=== PATIENT | male | born 1930 | race Caucasian/White ===

== ENCOUNTER 2017-08-19 21:08 | Inpatient (IN) | payer MEDICARE ==
[~2017-08-19] VITALS: Ht 172.7 cm; Wt 85.0 kg
[2017-08-19 23:11] VITALS: BP 128/69
[2017-08-20] MEDS ORDERED: VANCOMYCIN 1,000 MG in NS 100ML 100 ML IV SCH (00:30)
[2017-08-20] MEDS ORDERED: VANCOMYCIN HCL 1 GM ONE (00:55)
[2017-08-20] MEDS ORDERED: NS 250ML 250 ML IV ONE (00:56)
[2017-08-20] MEDS: LOVENOX SQ SCH (01:02)
--- NOTE | 2017-08-20 01:50 | HPH ---
ADMIT DATE: 08/19/2017 The patient is being admitted as an inpatient. PRIMARY CARE PHYSICIAN: Emergency Services Director, [facility], [place] ADMITTING DIAGNOSES: 1. Right lower lobe pneumonia. 2. Type 2 diabetes mellitus. 3. Hypertension. CHIEF COMPLAINT: Worsened breathing and coughing. HISTORY OF PRESENT ILLNESS: The patient is a very pleasant 86-year-old [facility] resident who started to have increasing URI symptoms for the past 4 to 5 days. He reports sick contacts around him at the [facility] and he started to have a productive sputum that progressed with increasing shortness of breath and a fever and him feeling ill. Today, he was running a fever and having chills and having lots of productive sputum and shortness of breath. So he was brought to the ER for further evaluation. He denied any night sweats, any syncope, no lethargy. His appetite has gone down, no vomiting. He has been coughing a lot of sputum up, green sputum. No hematemesis, no hemoptysis, no melena, no hematochezia, no abdominal pains, no constipation, no significant diarrhea lately, no dysuria. He reported having a remote history of CVA that affected his left side, and he did good with therapy, however in the past 4 to 5 days, he has been feeling weaker moving around. PAST MEDICAL HISTORY: Significant for hypertension, type 2 diabetes mellitus, and a remote history of a right CVA with left hemiparesis. ALLERGIES: PENICILLIN AND HYDROCODONE. SOCIAL HISTORY: He has a remote history of smoking. No illicit drugs and no alcohol reported. FAMILY HISTORY: The family history was asked and is noncontributory for this admission. PAST SURGICAL HISTORY: Hernia surgery, cholecystectomy, and appendectomy. MEDICATIONS: The medications he is on include Ceftin that was started recently, Flomax, aspirin, Lasix, lisinopril, potassium chloride, artificial tears solution, Biotene solution, guaifenesin, and metformin. PHYSICAL EXAMINATION: VITAL SIGNS: Vital signs on admission: Temperature 97.4 degrees Fahrenheit, pulse rate 100, respirations 18, blood pressure 128/69 mmHg, and O2 saturation 93%. His temperature was 100.6 in the [place] ER. My physical exam is as follows: GENERAL: He was in no acute distress to me, awake and alert, a very pleasant gentleman. Oropharynx was clear. No maxillary sinus tenderness. NECK: The neck was supple, no JVD noted. HEART: S1 and S2 audible. Heart rate on my exam was about 90 beats a minute. PMI was diffuse. LUNGS: He had crackles to the right base noted. ABDOMEN: Good bowel sounds, soft abdomen, no rebound, no guarding, no masses. EXTREMITIES: He had some mild edema to his legs. 2+ distal pulses noted on his right side and 1+ on his left side. LABORATORY DATA: So in the [place] ER, labs were drawn: Glucose 159, BUN 13, creatinine 0.7, sodium 128, potassium 3.5, chloride 93, albumin 3.5, total bilirubin 1.5, alkaline phosphatase 71, CK 66, troponin 0.028, BNP 682, lactic acid level 3.1, D-dimer is 43, white count 9100, hemoglobin 13.8, and platelet count 197. IMAGING STUDIES: A chest x-ray showed a right lower lobe consolidative pneumonia. ASSESSMENT: We have this elderly gentleman from the [facility] with pneumonia. I do think it is a healthcare-related pneumonia at this point. IV vancomycin and Primaxin will be started for him with breathing treatments. I will do a sputum Gram stain and culture. Blood cultures were obtained in [place]. I will get an echocardiogram on him to evaluate his LV function and give him cautious IV fluids. He was given actually a fluid bolus in [place] and was transferred over here, but the paramedics noted that he sounded very wet and so they stopped the IV fluids. So at this point, he may have an underlying heart component that would preclude him from getting his sepsis fluid intake at 30 mL per kilos and this may be too much for him, but I will follow along and start prompt antibiotics and O2 and breathing treatments and we will see how he will do. Dariana Pichardo MD DR: PHYLLIS/lissett JOB# [id number]
[2017-08-20 01:52] LABS: BILIRUBIN,URINE NEGATIVE (NEGATIVE); UROBILINOGEN,URINE NORMAL (NEGATIVE)
[2017-08-20 02:00] LABS: APPEARANCE,URINE CLEAR (CLEAR); UA COLOR YELLOW (YELLOW)
[2017-08-20 04:17] VITALS: BP 142/81
[2017-08-20] MEDS ORDERED: NS 100ML 100 ML IV ONE (05:31)
[2017-08-20] MEDS ORDERED: MEROPENEM 1,000 MG in NS 100ML 100 ML IV SCH (06:00)
--- NOTE | 2017-08-20 07:00 | NUR ---
REPORT RECEIVED FROM GIS PROFESSOR
[2017-08-20 07:25] VITALS: BP 119/85
--- NOTE | 2017-08-20 08:35 | NUR ---
DISCHARGE PLAN CM VISITED WITH PATIENT CONCERNING HIS DISCHARGE PLAN AND NEED. PATIENT STATED HE IS @ [facility] AND HAS BEEN RECEIVING PHYSICAL THERAPY SINCE HE FRACTURED HIS HIP. CM NOTIFIED [facility] AND SPOKE TO LORETTA IN BUSINESS OFFICE WHOM STATED PATIENT HAS BEEN WITH THEM SINCE 07-01-17 UNDER SNF SERVICES S/P HIP FRACTURE. PATIENT HAS ALL DME IN PLACE @ IN AND HAS BEEN PROGRESSING WELL, UNIT HE CAME DOWN SICK; THUS HOSPITAL ADMISSION. PATIENT HAS NOT BEEN SENT OUT OF IN SINCE ADMISSION INTO FACILITY PER LORETTA. CURRENT GOAL FOR PATIENT IS TO DISCHARGE BACK TO IN AND FINISH HIS SNF SERVICES THEN DISCHARGE BACK HOME WITH . PATIENT CAN DISCHARGE TO BACK TO FACILITY ANYTIME ONCE MEDICALLY STABLE. CM TO CONTINUE TO FOLLOW PATIENTS PLAN OF CARE AND FOR FURTHER DISCHARGE NEEDS.
[2017-08-20] MEDS: MUCINEX PO SCH ×2 (09:09→21:25)
--- NOTE | 2017-08-20 09:24 | NUR ---
STATUS PT IS IN BED AT THIS TIME AWAKE. PT DENIES ANY PAIN OR DISCOMFORT. PRODUCTIVE COUGH IS NOTED AT THIS TIME. NO OTHER NEEDS NOTED. CALL LIGHT IN REACH
[2017-08-20] MEDS: DUONEB 0.5 MG-3 MG/3 ML SOLN IH SCH ×3 (10:12→19:51)
--- NOTE | 2017-08-20 10:52 | PCM.EKG ---
[facility] Test Date: 2017-08-20 Test Time: 10:50:36 Pat Name: FABIAN PALM Department: Room: 341 A Gender: M Bull Rider: : [id number] Requested By: AWAIS APPLE Order Number: [id number] Reading MD: Measurements Intervals Otto Rate: 102 P: 47 SC: 182 QRS: -28 QRSD: 74 T: 74 QT: 342 QTc: 445 Interpretive Statements Sinus tachycardia Low voltage QRS Borderline ECG No previous ECG available for comparison Please click the below link to view image of tracing.
[2017-08-20 11:22] VITALS: BP 112/64
[2017-08-20] MEDS: VANCOMYCIN HCL 1 GM in NS 250ML 250 ML IV SCH (11:30)
[2017-08-20] MEDS: MERREM IV SCH ×2 (13:03→21:26)
[2017-08-20] MEDS: D5W IV SCH ×2 (13:03→21:26)
--- NOTE | 2017-08-20 15:28 | NUR ---
STATUS PT TRANSFERRED TO BSC FROM BED. PT IS A X2 MODERATE ASSIST WHEN AMBULATING WITH WALKER. PT HAS A UNSTEADY GAIT AND WITH SOME LOSS OF BALANCE. PT BACK IN BED AT THIS TIME CALL LIGHT IN REACH.
[2017-08-20 16:14] VITALS: BP 116/75
--- NOTE | 2017-08-20 17:40 | NUR ---
RECLINER BROUGHT RECLINER TO PT ROOM. PT SAID HE WILL TRY IT TOMORROW. PT IN BED EATING AT THIS TIME. WITH NO PAIN OR DISCOMFORT NOTED
[2017-08-20] MEDS ORDERED: LOPRESSER IVP STA (18:28)
--- NOTE | 2017-08-20 19:05 | NUR ---
DR. APPLE AT BEDSIDE WITH PT AND EXPLAINING TO HIM TREATMENT PLAN.
--- NOTE | 2017-08-20 19:27 | PRM.PN ---
Subjective Subjective Date: Aug 20, 2017 Time: 19:15 Subjective Pt reports coughing up lots of sputum but feels ok VTE VTE Risk Score VTE Risk: Score 0-1 = Low Risk (Aggressive mobilization; early ambulation; no VTE prophylaxis required) Score 2: Moderate Risk (Intermittent/Pneumatic Compression Device OR Lovenox/Heparin/Coumadin) Score 3-4: High Risk (Intermittent/Pneumatic Compression Device AND Lovenox/Heparin/Coumadin) Score > or =5: Highest Risk (Intermittent/Pneumatic Compression Device AND Lovenox/Heparin/Coumadin) Antico:Hep/LMWH/Coum/Xarelto: Yes Mechanical device ordered: Yes Review of Systems Constitutional: Weakness, Malaise, No: Fever Eyes: No: Vision change, Conjunctivae inflammation, Eyelid inflammation ENT: No: Ear discharge, Nose discharge, Nose congestion, Mouth pain, Mouth swelling Respiratory: Cough, Shortness of breath, Sputum Cardiovascular: No: Chest Pain, Palpitations, Orthopnea, Paroxysmal Noc. Dyspnea Gastrointestinal: No: Nausea, Vomiting, Abdominal Pain, Diarrhea Musculoskeletal: No: neck pain, shoulder pain, arm pain, back pain Skin: No: Rash, Jaundice, Bruising Neurological: No: Change in speech, Confusion, Seizures Allergies: Coded Allergies: Penicillins (Verified Allergy, Unknown, Rash, 08/20/17) hydrocodone (Verified Allergy, Unknown, 08/20/17) Objective Vitals and I/O Vital Sign - Last 24 Hours 08/19/17 08/19/17 08/20/17 08/20/17 23:00 23:11 02:28 04:17 Temp 97.4 97.1 Pulse 100 99 Resp B/P (MAP) 128/69 (88) 142/81 (101) Pulse Ox 93 97 O2 Delivery Nasal Cannula Nasal Cannula O2 Flow Rate 3.00 3.00 08/20/17 08/20/17 08/20/17 08/20/17 07:25 08:17 10:16 10:16 Temp 97.5 Pulse 76 106 102 Resp 18 20 18 B/P (MAP) 119/85 (96) Pulse Ox 96 90 92 O2 Delivery Nasal Canula Nasal Cannula O2 Flow Rate 2.00 08/20/17 08/20/17 08/20/17 08/20/17 10:24 11:22 14:53 14:54 Temp 98.3 Pulse 97 93 97 Resp 18 18 20 18 B/P (MAP) 112/64 (80) Pulse Ox 92 95 94 95 O2 Delivery Nasal [place] 08/20/17 08/20/17 08/20/17 16:14 18:35 19:08 Temp 98.5 Pulse 95 95 Resp 18 B/P (MAP) 116/75 (89) 116/75 Pulse Ox 95 O2 Delivery Nasal [place] Nasal Cannula O2 Flow Rate 2.00 Intake and Output 08/19/17 08/19/17 08/20/17 15:00 23:00 07:00 Output Total 450 ml Balance -450 ml General: Alert, Cooperative, No acute distress HEENT: Atraumatic, Mucous membr. moist/pink Neck: Supple, No LAD Lungs: Other (decreased BS on R base with some crackles) Heart: Normal S1, Normal S2, Other (tachy) Abdomen: Normal bowel sounds, Soft, No tenderness Extremities: No clubbing, No cyanosis Skin: No rashes Neuro: Normal speech Psych/Mental Status: Mental status NL, Mood NL Course Blood Pressure Systolic: 116 Blood Pressure Diastolic: 75 Blood Pressure Mean: 89 Assessment/Plan Assessment/Plan Assessment/Plan 86 yo male with pneumonia, Type 2 DM, HTN, weakness - cont IV vanco and meropenem - recheck labs tomorrow - follow sugars - follow BPs - echo pending Problems: AWAIS APPLE MD Aug 20, 2017 19:27
[2017-08-20] MEDS ORDERED: DEXT1DRO7 OP (19:36)
[2017-08-20] MEDS ORDERED: ASPI-484 PO (19:36)
[2017-08-20] MEDS ORDERED: POTA10CA PO (19:36)
[2017-08-20] MEDS ORDERED: FURO-81 PO (19:36)
[2017-08-20] MEDS ORDERED: SALI10002 MM (19:36)
[2017-08-20] MEDS ORDERED: CEFU250S PO (19:36)
[2017-08-20] MEDS ORDERED: LISI10TA2 PO (19:36)
[2017-08-20] MEDS ORDERED: METF10002 PO (19:36)
[2017-08-20] MEDS ORDERED: TAMS-14 PO (19:36)
[2017-08-20] MEDS ORDERED: GUAI600T31 PO (19:36)
[2017-08-20] MEDS ORDERED: MAG355OR14 PO (19:36)
[2017-08-20 19:59] VITALS: BP 154/91
--- NOTE | 2017-08-21 00:20 | NUR ---
PT HAS A PRODUCTIVE COUGH HAS SANTOS COLORED SPUTUM. PT UP TO BEDSIDE COMMODE HAS SOFT BOWEL MOVEMENT. PT UNSTEADY NEEDS ASSIST TO BSC.
[2017-08-21 00:24] VITALS: BP 130/80
[2017-08-21] MEDS: LOVENOX SQ SCH (01:00)
[2017-08-21] MEDS: VANCOMYCIN HCL 1 GM in NS 250ML 250 ML IV SCH ×2 (01:02→12:38)
[2017-08-21 04:22] VITALS: BP 146/100
[2017-08-21] MEDS: MERREM IV SCH ×3 (05:11→21:08)
[2017-08-21] MEDS: NS IV SCH ×3 (05:11→21:08)
[2017-08-21 05:40] LABS: EOSINOPHIL % 0.3 % (0.0-5.0); LYMPHOCYTES # 0.8 10^3/uL (1.0-4.8); LYMPHOCYTES % 12.5 % (24.0-44.0); MEAN CELL HGB 27.7 pg (26-34); MEAN CELL HGB CONCENTRATION 31.4 g/dL (33-37); MEAN CORP VOLUME 88.2 fL (78-100); MEAN PLATELET VOLUME 9.4 fL (7.8-11.0); MONOCYTES # 0.5 10^3/uL (0.3-0.8); MONOCYTES % 8.9 % (5.0-12.0); NEUTROPHIL # 4.7 10^3/uL (1.8-7.7); NEUTROPHILS % 78.1 % (41.0-85.0); RED CELL DISTRIBUTION WIDTH 16.1 % (11.5-14.5); WHITE BLOOD CELL 6.1 10^3/uL (4.5-11.0)
[2017-08-21 05:56] LABS: CALCIUM 8.2 mg/dL (8.4-10.5); CARBON DIOXIDE 28.7 mmol/L (20.0-32)
[2017-08-21 08:25] VITALS: BP 139/80
[2017-08-21] MEDS: MUCINEX PO SCH ×2 (08:41→21:07)
--- NOTE | 2017-08-21 09:14 | DIREP ---
PROCEDURE:CHEST 2 VIEWS COMPARISON:[facility], CR, XRAY CHEST SINGLE VW, 08/19/2017, 06:10 PM. [facility], CR, XRAY CHEST 2 VWS, 06/28/2017, 10:18 AM. INDICATIONS:pneumonia, cough FINDINGS: LUNGS/PLEURA:Bilateral perihilar interstitial thickening. Mild opacity in the right lung base has slightly improved. VASCULATURE:Normal. Unremarkable pulmonary vasculature. CARDIAC:Normal. No cardiac silhouette abnormality or cardiomegaly. MEDIASTINUM:Normal. No visible mass or adenopathy. BONES:Normal. No fracture or visible bony lesion. OTHER:Negative. CONCLUSION:Mild improvement in aeration in the right lung base pneumonia superimposed on interstitial thickening bilaterally. Dictated by: Jose Angel Jackson M.D. on 08/21/2017 at 09:12 AM
[2017-08-21] MEDS: DUONEB 0.5 MG-3 MG/3 ML SOLN IH SCH ×3 (09:17→19:24)
[2017-08-21 12:52] VITALS: BP 112/67
--- NOTE | 2017-08-21 17:54 | PRM.PN ---
Subjective Subjective Date: Aug 21, 2017 Time: 17:40 Subjective Pr reports doing better; coughing up sputum VTE VTE Risk Score VTE Risk: Score 0-1 = Low Risk (Aggressive mobilization; early ambulation; no VTE prophylaxis required) Score 2: Moderate Risk (Intermittent/Pneumatic Compression Device OR Lovenox/Heparin/Coumadin) Score 3-4: High Risk (Intermittent/Pneumatic Compression Device AND Lovenox/Heparin/Coumadin) Score > or =5: Highest Risk (Intermittent/Pneumatic Compression Device AND Lovenox/Heparin/Coumadin) Antico:Hep/LMWH/Coum/Xarelto: Yes Mechanical device ordered: Yes Review of Systems Constitutional: Weakness, No: Fever, Malaise Eyes: No: Vision change, Conjunctivae inflammation, Eyelid inflammation ENT: No: Ear discharge, Nose discharge, Nose congestion, Mouth pain, Mouth swelling Respiratory: Cough, SOB with excertion, Sputum Cardiovascular: No: Chest Pain, Palpitations, Orthopnea, Paroxysmal Noc. Dyspnea Gastrointestinal: No: Nausea, Vomiting, Abdominal Pain, Diarrhea Musculoskeletal: No: neck pain, shoulder pain, arm pain, back pain Skin: No: Rash, Jaundice, Bruising Neurological: No: Change in speech, Confusion, Seizures Allergies: Coded Allergies: Penicillins (Verified Allergy, Unknown, Rash, 08/20/17) hydrocodone (Verified Allergy, Unknown, 08/20/17) Scheduled Aspirin (Aspir 81), 81 MG PO DAILY24, (Reported) Cefuroxime Axetil (Ceftin), 500 MG PO BID, (Reported) Dextran 70/Hypromellose/Pf (Artificial Tears Drops), 1 EACH OP BID, (Reported) Furosemide (Lasix), 20 MG PO DAILY24, (Reported) Guaifenesin (Mucinex), 600 MG PO BID, (Reported) Lisinopril (Lisinopril), 10 MG PO DAILY24, (Reported) Metformin Hcl (Metformin Hcl), 1,000 MG PO BID, (Reported) Potassium Chloride (Potassium Chloride), 10 MEQ PO DAILY24, (Reported) Saliva Substitution Combo No.9 (Biotene), 10 ML MM BID, (Reported) Tamsulosin Hcl (Flomax), 0.4 MG PO DAILY24, (Reported) Scheduled PRN Mag Hydrox/Aluminum Hyd/Simeth (Maalox Advanced Suspension), 10 ML PO Q4 PRN for INDIGESTION, (Reported) Objective Vitals and I/O Vital Sign - Last 24 Hours 08/20/17 08/20/17 08/20/17 08/20/17 18:35 19:08 19:51 19:52 Pulse 95 101 101 Resp 16 16 B/P (MAP) 116/75 Pulse Ox 94 94 O2 Delivery Nasal Cannula Nasal Cannula O2 Flow Rate 2.00 2.00 08/20/17 08/20/17 08/21/17 08/21/17 19:58 19:59 00:24 04:22 Temp 98.3 99.3 97.6 Pulse 99 97 109 87 Resp 16 18 19 18 B/P (MAP) 154/91 (112) 130/80 (97) 146/100 (115) Pulse Ox 96 94 91 91 O2 Delivery Nasal Canula Nasal Canula Nasal Canula 08/21/17 08/21/17 08/21/17 08/21/17 07:44 08:25 09:19 09:20 Temp 98.7 Pulse 86 96 97 Resp 18 20 20 B/P (MAP) 139/80 (99) Pulse Ox 94 97 96 O2 Delivery Nasal Cannula Nasal [place] Nasal Cannula O2 Flow Rate 2.00 3.00 FiO2 32 08/21/17 08/21/17 08/21/17 08/21/17 09:25 12:52 15:14 15:16 Temp 98.9 Pulse 117 98 96 96 Resp 20 18 20 20 B/P (MAP) 112/67 (82) Pulse Ox 97 94 95 97 O2 Delivery Nasal [place] Intake and Output 08/20/17 08/20/17 08/21/17 15:00 23:00 07:00 Intake Total 500 ml 360 ml Output Total 300 ml 225 ml 500 ml Balance -300 ml 275 ml -140 ml General: Alert, Cooperative, No acute distress HEENT: Atraumatic, PERRLA, Mucous membr. moist/pink Neck: Supple, No LAD Lungs: Other (decreased BS at bases B) Heart: Normal S1, Normal S2 Abdomen: Normal bowel sounds Extremities: No clubbing, No cyanosis Skin: No breakdown Neuro: Normal speech Psych/Mental Status: Mental status NL, Mood NL Medication Reconciliation Scheduled Aspirin (Aspir 81), 81 MG PO DAILY24, (Reported) Cefuroxime Axetil (Ceftin), 500 MG PO BID, (Reported) Dextran 70/Hypromellose/Pf (Artificial Tears Drops), 1 EACH OP BID, (Reported) Furosemide (Lasix), 20 MG PO DAILY24, (Reported) Guaifenesin (Mucinex), 600 MG PO BID, (Reported) Lisinopril (Lisinopril), 10 MG PO DAILY24, (Reported) Metformin Hcl (Metformin Hcl), 1,000 MG PO BID, (Reported) Potassium Chloride (Potassium Chloride), 10 MEQ PO DAILY24, (Reported) Saliva Substitution Combo No.9 (Biotene), 10 ML MM BID, (Reported) Tamsulosin Hcl (Flomax), 0.4 MG PO DAILY24, (Reported) Scheduled PRN Mag Hydrox/Aluminum Hyd/Simeth (Maalox Advanced Suspension), 10 ML PO Q4 PRN for INDIGESTION, (Reported) Course Blood Pressure Systolic: 112 Blood Pressure Diastolic: 67 Blood Pressure Mean: 82 Assessment/Plan Assessment/Plan Assessment/Plan 86 yo male with pneumonia, HTN, DM - cont IV abx - repeat CXR with slight improvement - labs are stable - increase pulmonary toiletry Problems: AWAIS APPLE MD Aug 21, 2017 17:54
[2017-08-21 18:37] VITALS: BP 127/67
[2017-08-21 20:55] VITALS: BP 130/76
[2017-08-22] MEDS: VANCOMYCIN HCL 1 GM in NS 250ML 250 ML IV SCH ×2 (00:31→12:31)
[2017-08-22] MEDS: LOVENOX SQ SCH (00:31)
[2017-08-22 01:31] VITALS: BP 157/97
[2017-08-22 05:21] VITALS: BP 147/110
[2017-08-22] MEDS: NS IV SCH ×3 (05:51→22:28)
[2017-08-22] MEDS: MERREM IV SCH ×3 (05:51→22:28)
[2017-08-22] MEDS: MUCINEX PO SCH ×2 (08:39→20:41)
[2017-08-22 08:54] VITALS: BP 153/91
[2017-08-22] MEDS: DUONEB 0.5 MG-3 MG/3 ML SOLN IH SCH ×3 (09:30→22:16)
[2017-08-22 13:23] VITALS: BP 116/77
--- NOTE | 2017-08-22 13:30 | PRM.PN ---
Subjective Subjective Date: Aug 22, 2017 Time: 13:10 Subjective Pt gets shortwinded easily today with therapy; coughing up lots of sputum now VTE VTE Risk Score VTE Risk: Score 0-1 = Low Risk (Aggressive mobilization; early ambulation; no VTE prophylaxis required) Score 2: Moderate Risk (Intermittent/Pneumatic Compression Device OR Lovenox/Heparin/Coumadin) Score 3-4: High Risk (Intermittent/Pneumatic Compression Device AND Lovenox/Heparin/Coumadin) Score > or =5: Highest Risk (Intermittent/Pneumatic Compression Device AND Lovenox/Heparin/Coumadin) Antico:Hep/LMWH/Coum/Xarelto: Yes Mechanical device ordered: Yes Review of Systems Constitutional: Weakness, No: Fever, Malaise Eyes: No: Vision change, Conjunctivae inflammation, Eyelid inflammation ENT: No: Ear discharge, Nose discharge, Nose congestion, Mouth pain, Mouth swelling Respiratory: Cough, SOB with excertion, Sputum Cardiovascular: No: Chest Pain, Palpitations, Orthopnea, Paroxysmal Noc. Dyspnea Gastrointestinal: No: Nausea, Vomiting, Abdominal Pain, Diarrhea Musculoskeletal: No: neck pain, shoulder pain, arm pain, back pain Skin: No: Rash, Jaundice, Bruising Neurological: No: Change in speech, Confusion, Seizures Allergies: Coded Allergies: Penicillins (Verified Allergy, Unknown, Rash, 08/20/17) hydrocodone (Verified Allergy, Unknown, 08/20/17) Scheduled Aspirin (Aspir 81), 81 MG PO DAILY24, (Reported) Cefuroxime Axetil (Ceftin), 500 MG PO BID, (Reported) Dextran 70/Hypromellose/Pf (Artificial Tears Drops), 1 EACH OP BID, (Reported) Furosemide (Lasix), 20 MG PO DAILY24, (Reported) Guaifenesin (Mucinex), 600 MG PO BID, (Reported) Lisinopril (Lisinopril), 10 MG PO DAILY24, (Reported) Metformin Hcl (Metformin Hcl), 1,000 MG PO BID, (Reported) Potassium Chloride (Potassium Chloride), 10 MEQ PO DAILY24, (Reported) Saliva Substitution Combo No.9 (Biotene), 10 ML MM BID, (Reported) Tamsulosin Hcl (Flomax), 0.4 MG PO DAILY24, (Reported) Scheduled PRN Mag Hydrox/Aluminum Hyd/Simeth (Maalox Advanced Suspension), 10 ML PO Q4 PRN for INDIGESTION, (Reported) Objective Vitals and I/O Vital Sign - Last 24 Hours 08/21/17 08/21/17 08/21/17 08/21/17 15:14 15:16 18:37 19:25 Temp 98.9 Pulse 96 96 96 88 Resp 20 18 18 B/P (MAP) 127/67 (87) Pulse Ox 95 97 95 95 O2 Delivery Nasal [place]ula 08/21/17 08/21/17 08/21/17 08/21/17 19:27 19:31 20:00 20:55 Temp 98.5 Pulse 88 87 109 Resp 22 B/P (MAP) 130/76 (94) Pulse Ox 95 97 95 O2 Delivery Nasal Cannula Nasal Cannula Nasal [place] O2 Flow Rate 2.00 3.00 08/22/17 08/22/17 08/22/17 08/22/17 01:31 05:21 07:00 08:54 Temp 98.5 98.2 98.5 Pulse 92 95 91 Resp 19 B/P (MAP) 157/97 (117) 147/110 (122) 153/91 (111) Pulse Ox 92 93 92 O2 Delivery Nasal Canula Nasal Canula Nasal Cannula Nasal Canula O2 Flow Rate 1.00 08/22/17 08/22/17 08/22/17 08/22/17 09:30 09:31 09:41 13:23 Temp 98.2 Pulse 103 103 103 94 Resp 19 B/P (MAP) 116/77 (90) Pulse Ox 92 92 95 92 O2 Delivery Nasal Cannula Nasal Canula O2 Flow Rate 2.00 Intake and Output 08/21/17 08/21/17 08/22/17 15:00 23:00 07:00 Intake Total 1430 ml Output Total 300 ml 980 ml Balance -300 ml 450 ml General: Alert, Cooperative, No acute distress HEENT: Atraumatic, Mucous membr. moist/pink Neck: Supple, No LAD Lungs: Other (decreased BS at bases) Heart: Normal S1, Normal S2 Abdomen: Normal bowel sounds, Soft Extremities: No clubbing, No cyanosis Skin: No breakdown Neuro: Normal speech Psych/Mental Status: Mental status NL, Mood NL Medication Reconciliation Scheduled Aspirin (Aspir 81), 81 MG PO DAILY24, (Reported) Cefuroxime Axetil (Ceftin), 500 MG PO BID, (Reported) Dextran 70/Hypromellose/Pf (Artificial Tears Drops), 1 EACH OP BID, (Reported) Furosemide (Lasix), 20 MG PO DAILY24, (Reported) Guaifenesin (Mucinex), 600 MG PO BID, (Reported) Lisinopril (Lisinopril), 10 MG PO DAILY24, (Reported) Metformin Hcl (Metformin Hcl), 1,000 MG PO BID, (Reported) Potassium Chloride (Potassium Chloride), 10 MEQ PO DAILY24, (Reported) Saliva Substitution Combo No.9 (Biotene), 10 ML MM BID, (Reported) Tamsulosin Hcl (Flomax), 0.4 MG PO DAILY24, (Reported) Scheduled PRN Mag Hydrox/Aluminum Hyd/Simeth (Maalox Advanced Suspension), 10 ML PO Q4 PRN for INDIGESTION, (Reported) Course Blood Pressure Systolic: 116 Blood Pressure Diastolic: 77 Blood Pressure Mean: 90 Assessment/Plan Assessment/Plan Assessment/Plan 86 yo male with pneumonia, HTN, DM - cont abx - cont PT - increase pulmonary toiletry Problems: AWAIS APPLE MD Aug 22, 2017 13:30
[2017-08-22] MEDS: KLOR-CON 10 PO SCH (14:08)
[2017-08-22] MEDS: ZESTRIL PO SCH (14:08)
[2017-08-22] MEDS: ASPIRIN EC PO SCH (14:08)
[2017-08-22] MEDS: LASIX PO SCH (14:08)
[2017-08-22] MEDS: FLOMAX PO SCH (14:08)
[2017-08-22 19:00] VITALS: BP 125/76
[2017-08-22] MEDS: GLUCOPHAGE PO SCH (20:41)
[2017-08-22] MEDS: ARTIFICIAL TEARS OP SCH (20:41)
[2017-08-23] MEDS: LOVENOX SQ SCH (00:30)
[2017-08-23] MEDS: VANCOMYCIN HCL 1 GM in NS 250ML 250 ML IV SCH ×2 (00:30→12:00)
[2017-08-23 01:00] VITALS: BP 145/92
[2017-08-23 06:12] LABS: BASOPHIL % 0.4 % (0.0-0.2); EOSINOPHIL # 0.1 10^3/uL (0.0-0.2); EOSINOPHIL % 1.1 % (0.0-5.0); HEMOGLOBIN 10.3 g/dL (13.9-16.3); LYMPHOCYTES # 1.1 10^3/uL (1.0-4.8); LYMPHOCYTES % 19.7 % (24.0-44.0); MEAN CELL HGB 27.2 pg (26-34); MEAN CORP VOLUME 87.6 fL (78-100); MEAN PLATELET VOLUME 8.7 fL (7.8-11.0); MONOCYTES # 0.5 10^3/uL (0.3-0.8); MONOCYTES % 8.4 % (5.0-12.0); NEUTROPHIL # 3.7 10^3/uL (1.8-7.7); RED CELL DISTRIBUTION WIDTH 16.2 % (11.5-14.5); WHITE BLOOD CELL 5.3 10^3/uL (4.5-11.0)
[2017-08-23] MEDS: MERREM IV SCH ×3 (06:12→21:10)
[2017-08-23] MEDS: NS IV SCH ×3 (06:12→21:10)
[2017-08-23 06:25] LABS: CALCIUM 8.3 mg/dL (8.4-10.5); CARBON DIOXIDE 31.4 mmol/L (20.0-32)
--- NOTE | 2017-08-23 06:25 | NUR ---
REPORT Received report assumed care of patient. Patient denies any wants or needs at this. Alert to verbal stimuli. No s/s of distress noted.
[2017-08-23 08:12] VITALS: BP 157/94
[2017-08-23] MEDS ORDERED: DUONEB 0.5 MG-3 MG/3 ML SOLN IH ONE (08:12)
[2017-08-23] MEDS: ARTIFICIAL TEARS OP SCH ×2 (09:00→21:10)
[2017-08-23] MEDS: DUONEB 0.5 MG-3 MG/3 ML SOLN IH SCH ×3 (09:00→20:30)
[2017-08-23] MEDS: FLOMAX PO SCH (09:26)
[2017-08-23] MEDS: ASPIRIN EC PO SCH (09:26)
[2017-08-23] MEDS: MUCINEX PO SCH ×2 (09:27→21:10)
[2017-08-23] MEDS: GLUCOPHAGE PO SCH ×2 (09:27→21:10)
[2017-08-23] MEDS: KLOR-CON 10 PO SCH (09:27)
[2017-08-23] MEDS: ZESTRIL PO SCH (09:27)
[2017-08-23] MEDS: LASIX PO SCH (09:28)
--- NOTE | 2017-08-23 09:45 | NUR ---
Status Patient up to restroom at this time. Patient had a large bowel movement. Patient ambulates with standby assist. no s/s of distress noted will continue to monitor.
[2017-08-23] MEDS ORDERED: NS 500ML 500 ML IV ONE (11:56)
[2017-08-23 12:45] VITALS: BP 140/83
--- NOTE | 2017-08-23 13:56 | PRM.PN ---
Subjective Subjective Date: Aug 23, 2017 Time: 13:40 Subjective Pt reports breathing ok; easily shortwinded when walking with therapy VTE VTE Risk Score VTE Risk: Score 0-1 = Low Risk (Aggressive mobilization; early ambulation; no VTE prophylaxis required) Score 2: Moderate Risk (Intermittent/Pneumatic Compression Device OR Lovenox/Heparin/Coumadin) Score 3-4: High Risk (Intermittent/Pneumatic Compression Device AND Lovenox/Heparin/Coumadin) Score > or =5: Highest Risk (Intermittent/Pneumatic Compression Device AND Lovenox/Heparin/Coumadin) Antico:Hep/LMWH/Coum/Xarelto: Yes Mechanical device ordered: Yes Review of Systems Constitutional: Weakness, No: Fever, Malaise Eyes: No: Vision change, Conjunctivae inflammation, Eyelid inflammation ENT: No: Ear discharge, Nose discharge, Nose congestion, Mouth pain, Mouth swelling Respiratory: Cough, SOB with excertion, Sputum Cardiovascular: No: Chest Pain, Palpitations, Orthopnea, Paroxysmal Noc. Dyspnea Gastrointestinal: No: Nausea, Vomiting, Abdominal Pain, Diarrhea Musculoskeletal: No: neck pain, shoulder pain, arm pain, back pain Skin: No: Rash, Jaundice, Bruising Neurological: No: Change in speech, Confusion, Seizures Allergies: Coded Allergies: Penicillins (Verified Allergy, Unknown, Rash, 08/20/17) hydrocodone (Verified Allergy, Unknown, 08/20/17) Scheduled Aspirin (Aspir 81), 81 MG PO DAILY24, (Reported) Cefuroxime Axetil (Ceftin), 500 MG PO BID, (Reported) Dextran 70/Hypromellose/Pf (Artificial Tears Drops), 1 EACH OP BID, (Reported) Furosemide (Lasix), 20 MG PO DAILY24, (Reported) Guaifenesin (Mucinex), 600 MG PO BID, (Reported) Lisinopril (Lisinopril), 10 MG PO DAILY24, (Reported) Metformin Hcl (Metformin Hcl), 1,000 MG PO BID, (Reported) Potassium Chloride (Potassium Chloride), 10 MEQ PO DAILY24, (Reported) Saliva Substitution Combo No.9 (Biotene), 10 ML MM BID, (Reported) Tamsulosin Hcl (Flomax), 0.4 MG PO DAILY24, (Reported) Scheduled PRN Mag Hydrox/Aluminum Hyd/Simeth (Maalox Advanced Suspension), 10 ML PO Q4 PRN for INDIGESTION, (Reported) Objective Vitals and I/O Vital Sign - Last 24 Hours 08/22/17 08/22/17 08/22/17 08/22/17 14:08 14:08 15:08 19:00 Temp 98.8 Pulse 88 102 Resp 19 20 B/P (MAP) 116/77 116/77 125/76 (92) Pulse Ox 94 95 O2 Delivery Nasal Canula 08/22/17 08/22/17 08/22/17 08/22/17 19:00 22:17 22:18 22:24 Pulse 99 99 97 Resp 16 16 16 Pulse Ox 91 91 94 O2 Delivery Nasal Cannula Nasal Cannula O2 Flow Rate 2.00 2.00 FiO2 28 08/23/17 08/23/17 08/23/17 08/23/17 01:00 07:48 08:12 09:00 Temp 98.9 97.7 Pulse 94 90 90 Resp 20 20 20 B/P (MAP) 145/92 (109) 157/94 (115) Pulse Ox 92 93 93 O2 Delivery Nasal Canula Nasal Cannula O2 Flow Rate 2.00 08/23/17 08/23/17 08/23/17 08/23/17 09:15 09:27 09:28 10:54 Pulse 93 90 Resp 20 20 B/P (MAP) 157/94 157/94 Pulse Ox 95 93 O2 Delivery Nasal Cannula O2 Flow Rate 2.00 08/23/17 12:45 Temp 99.5 Pulse 93 Resp 20 B/P (MAP) 140/83 (102) Pulse Ox 92 Intake and Output 08/22/17 08/22/17 08/23/17 15:00 23:00 07:00 Intake Total 760 ml Output Total 200 ml 925 ml Balance -200 ml -165 ml General: Alert, Cooperative, No acute distress HEENT: Atraumatic, Mucous membr. moist/pink Neck: Supple, No JVD, No LAD Lungs: Other (exp wheezes B with decreased BS at bases B) Heart: Normal S1, Normal S2 Abdomen: Normal bowel sounds, Soft Extremities: No cyanosis Skin: No rashes, No breakdown Neuro: Normal speech Psych/Mental Status: Mental status NL, Mood NL Medication Reconciliation Scheduled Aspirin (Aspir 81), 81 MG PO DAILY24, (Reported) Cefuroxime Axetil (Ceftin), 500 MG PO BID, (Reported) Dextran 70/Hypromellose/Pf (Artificial Tears Drops), 1 EACH OP BID, (Reported) Furosemide (Lasix), 20 MG PO DAILY24, (Reported) Guaifenesin (Mucinex), 600 MG PO BID, (Reported) Lisinopril (Lisinopril), 10 MG PO DAILY24, (Reported) Metformin Hcl (Metformin Hcl), 1,000 MG PO BID, (Reported) Potassium Chloride (Potassium Chloride), 10 MEQ PO DAILY24, (Reported) Saliva Substitution Combo No.9 (Biotene), 10 ML MM BID, (Reported) Tamsulosin Hcl (Flomax), 0.4 MG PO DAILY24, (Reported) Scheduled PRN Mag Hydrox/Aluminum Hyd/Simeth (Maalox Advanced Suspension), 10 ML PO Q4 PRN for INDIGESTION, (Reported) Course Blood Pressure Systolic: 140 Blood Pressure Diastolic: 83 Blood Pressure Mean: 102 Assessment/Plan Assessment/Plan Assessment/Plan 86 yo male with pneumonia, DM, HTN, weakness - cont IV abx - check on cxs from [place] - follow sugars and BPs - cont O2 and increase pulmonary toiletry - repeat CXR tomorrow - labs ok Problems: AWAIS APPLE MD Aug 23, 2017 13:56
[2017-08-23 17:52] VITALS: BP 115/70
--- NOTE | 2017-08-23 19:05 | NUR ---
PT SITTING IN CHAIR. DENIES PAIN DENIES NEEDS. CALL LIGHT WITHIN REACH.
--- NOTE | 2017-08-23 19:07 | NUR ---
REPORT REPORT GIVEN TO ONCOMING SHIFT AND RELINQUISHED CARE
[2017-08-23 20:22] VITALS: BP 152/98
[2017-08-24] MEDS: LOVENOX SQ SCH (00:27)
[2017-08-24] MEDS: VANCOMYCIN HCL 1 GM in NS 250ML 250 ML IV SCH (00:28)
[2017-08-24 01:04] VITALS: BP 143/85
[2017-08-24 05:00] VITALS: BP 140/81
[2017-08-24] MEDS: MERREM IV SCH (05:29)
[2017-08-24] MEDS: NS IV SCH (05:29)
--- NOTE | 2017-08-24 07:13 | DIREP ---
PROCEDURE:CHEST 2 VIEWS COMPARISON:[facility], CR, XRAY CHEST 2 VWS, 08/21/2017, 08:33 AM. [facility], CR, XRAY CHEST SINGLE VW, 08/19/2017, 06:10 PM. INDICATIONS:pneumonia, SOB FINDINGS: LUNGS/PLEURA:Shallow inspiration. Mild bilateral perihilar interstitial thickening. Improving aeration in the right lung base. VASCULATURE:Normal. Unremarkable pulmonary vasculature. CARDIAC:Normal. No cardiac silhouette abnormality or cardiomegaly. MEDIASTINUM:Atherosclerotic aorta with no visible aneurysm. BONES:Normal. No fracture or visible bony lesion. OTHER:Negative. CONCLUSION:Improving aeration in the right lung base. Dictated by: Jose Angel Jackson M.D. on 08/24/2017 at 07:12 AM
[2017-08-24 07:30] VITALS: BP 147/90
[2017-08-24] MEDS: MUCINEX PO SCH ×2 (08:29→21:56)
[2017-08-24] MEDS: FLOMAX PO SCH (08:30)
[2017-08-24] MEDS: KLOR-CON 10 PO SCH (08:30)
[2017-08-24] MEDS: LASIX PO SCH (08:31)
[2017-08-24] MEDS: ZESTRIL PO SCH (08:31)
[2017-08-24] MEDS: ASPIRIN EC PO SCH (08:32)
[2017-08-24] MEDS: ARTIFICIAL TEARS OP SCH ×2 (08:32→21:57)
[2017-08-24] MEDS: GLUCOPHAGE PO SCH ×2 (08:32→21:57)
[2017-08-24] MEDS ORDERED: DUONEB 0.5 MG-3 MG/3 ML SOLN IH ONE (09:49)
[2017-08-24] MEDS: DUONEB 0.5 MG-3 MG/3 ML SOLN IH SCH ×3 (10:03→21:01)
--- NOTE | 2017-08-24 10:24 | NUR ---
Pt AMBULATING IN THE [address] ASSISTED BY PT WITH GAIT BELT AND WALKER, NO S/S OF DISTRESS DISCOMFORT NOTED.
[2017-08-24] MEDS: LEVAQUIN PO SCH (12:30)
[2017-08-24 13:09] VITALS: BP 122/79
[2017-08-24 17:00] VITALS: BP 121/75
[2017-08-24 20:47] VITALS: BP 130/87
[2017-08-25] MEDS: LOVENOX SQ SCH (00:41)
--- NOTE | 2017-08-25 01:29 | PNH ---
DATE: 08/24/2017 SUBJECTIVE: He denied any uncontrolled pain, no chest pain, no difficulty breathing. He does get a little bit short of breath with ambulation, but other than that, no acute events. OBJECTIVE: VITAL SIGNS: T-max the last 24 hours was 99.5 degrees Fahrenheit, pulse 99, respiratory rate 16, blood pressure 121/75 mmHg, and O2 saturation 92% on room air. GENERAL: He was alert, in no acute distress at the time of exam. HEENT: Pupils were equal, round, and reactive to light. Sclerae were anicteric. Oropharynx was clear. Mucous membranes were moist. NECK: The neck was supple, no lymphadenopathy. CARDIOVASCULAR: At the time of was exam slightly tachycardic, regular rhythm. PULMONARY: The lungs were decreased at the bases bilaterally, no wheezing. ABDOMEN: The abdomen was soft, bowel sounds were present, nontender to palpation. EXTREMITIES: No cyanosis, clubbing, or significant edema. NEUROLOGIC: Grossly nonfocal. ASSESSMENT AND PLAN: The patient is an 86-year-old gentleman here with pneumonia, diabetes mellitus type 2, hypertension, asthenia, with resolved acute hypoxic respiratory failure, and anemia due to chronic disease. 1. We will continue the current IV antibiotics. 2. Continue cardiovascular medications at the current dose. 3. Nebulizer treatments as needed. 4. O2 protocol. 5. We will continue metformin along with a diabetic diet. 6. DVT prophylaxis with Lovenox. 7. If he clinically continues to improve, likely the discharge will be tomorrow. Case Management assistance on whether he is going to correction or to home with home health. Time spent on August 24, 2017: 25 minutes Alo Marshall MD DR: TOAN/lissett JOB# [id number]
[2017-08-25 01:37] VITALS: BP 149/84
[2017-08-25 05:06] VITALS: BP 138/91
[2017-08-25 05:38] LABS: BASOPHIL % 0.2 % (0.0-0.2); EOSINOPHIL # 0.1 10^3/uL (0.0-0.2); EOSINOPHIL % 1.2 % (0.0-5.0); HEMOGLOBIN 10.8 g/dL (13.9-16.3); LYMPHOCYTES # 1.2 10^3/uL (1.0-4.8); LYMPHOCYTES % 18.4 % (24.0-44.0); MEAN CELL HGB 27.8 pg (26-34); MEAN CELL HGB CONCENTRATION 31.9 g/dL (33-37); MEAN CORP VOLUME 87.1 fL (78-100); MEAN PLATELET VOLUME 9.4 fL (7.8-11.0); MONOCYTES # 0.6 10^3/uL (0.3-0.8); MONOCYTES % 8.8 % (5.0-12.0); NEUTROPHIL # 4.7 10^3/uL (1.8-7.7); NEUTROPHILS % 70.9 % (41.0-85.0); WHITE BLOOD CELL 6.6 10^3/uL (4.5-11.0)
[2017-08-25 06:08] LABS: CALCIUM 8.4 mg/dL (8.4-10.5); CARBON DIOXIDE 26.8 mmol/L (20.0-32)
--- NOTE | 2017-08-25 07:04 | NUR ---
BEDSIDE REPORT RECEIVED FROM KIMBERLI MCCOY.
[2017-08-25 07:30] VITALS: BP 138/88
[2017-08-25] MEDS: ARTIFICIAL TEARS OP SCH (09:00)
--- NOTE | 2017-08-25 09:25 | NUR ---
UPDATE TO [facility] CM FAXED ALL PATIENT APPLICABLE CLINICAL INFORMATION WITH DISCHARGE INSTRUCTIONS TO [facility]. CM ALSO NOTIFIED [facility] AND SPOKE TO [facility] SITE IDENTIFICATION SPECIALIST REGARDING PATIENTS TENTATIVE DISCHARGE FOR TODAY. [facility] STATED PATIENT CAN DISCHARGE BACK TO [place] ANYTIME TODAY ONCE [facility] NURSING CALLS REPORT TO #[phone] AND ARRANGES TRANSPORTATION TIME. CM PROVIDED [facility] WITH [facility]'S CONTACT INFORMATION FOR FACILITY TO STAY IN CLOSE CONTACT FOR PATIENT DISCHARGE. MED SURG CHARGE NURSE Azucena DE JESUS RN NOTIFIED. NO FURTHER CM OR DISCHARGE NEEDS KNOWN @ THIS TIME.
[2017-08-25] MEDS: DUONEB 0.5 MG-3 MG/3 ML SOLN IH SCH (09:38)
[2017-08-25] MEDS ORDERED: LEVO500T51 PO (09:47)
--- NOTE | 2017-08-25 10:07 | PRM.DC ---
Discharge Summary Date of Discharge: Aug 25, 2017 Reason for Visit: Cough and shortness of breath History Present Illness: (1) Acute and chronic respiratory failure with hypoxia SEVERITY: MILD PERSISTENT Status: Acute ICD Code: J96.21 - Acute and chronic respiratory failure with hypoxia SNOMED: 496283542, 354630883 Assessment & Plan: Oxygen protocol at [facility], likely will need O2 supplementation at night while sleeping (2) Pneumonia Status: Acute ICD Code: J18.9 - Pneumonia, unspecified organism SNOMED: 226495989 Assessment & Plan: Continue oral antibiotics at SNF (3) CVA, old, hemiparesis SEVERITY: MILD PERSISTENT Status: Chronic ICD Code: I69.359 - Hemiplegia and hemiparesis following cerebral infarction affecting unspecified side SNOMED: 175990198 Assessment & Plan: PT/OT at [facility] (4) DM type 2 (diabetes mellitus, type 2) SEVERITY: MILD PERSISTENT Status: Chronic ICD Code: E11.9 - Type 2 diabetes mellitus without complications SNOMED: 87186274 Assessment & Plan: Continue current medical management, ADA diet General: Alert, Oriented X3, Cooperative, No acute distress HEENT: PERRLA, EOMI, Mucous membr. moist/pink Neck: Supple, No JVD Lungs: Normal air movement, Other (mild decreased aeration bilateral bases) Heart: Regular rate, Normal S1, Normal S2 Abdomen: Normal bowel sounds, Soft, No tenderness Extremities: No clubbing, No cyanosis Skin: No significant lesion Neuro: Normal speech, Normal tone, Sensation intact, Cranial nerves 3-12 NL Psych/Mental Status: Mental status NL, Mood NL Results(Labs/Rad) Laboratory Tests Test 08/24/17 04:10 08/25/17 05:30 Random Vancomycin Level 20.7 ug/mL White Blood Count 6.6 10^3/uL Red Blood Count 3.89 10^6/uL Hemoglobin 10.8 g/dL Hematocrit 33.9 % Mean Corpuscular Volume 87.1 fL Mean Corpuscular Hemoglobin 27.8 pg Mean Corpuscular Hemoglobin Concent 31.9 g/dL Red Cell Distribution Width 16.0 % Platelet Count 232 10^3/uL Mean Platelet Volume 9.4 fL Neutrophils (%) (Auto) 70.9 % Lymphocytes (%) (Auto) 18.4 % Monocytes (%) (Auto) 8.8 % Neutrophils # (Auto) 4.7 10^3/uL Lymphocytes # (Auto) 1.2 10^3/uL Monocytes # (Auto) 0.6 10^3/uL Absolute Immature Granulocyte (auto 0.03 10^3 u/L Eosinophils % 1.2 % Basophils % 0.2 % Basophils # 0.0 10^3/uL Eosinophil Count 0.1 10^3/uL Sodium Level 137 mmol/L Potassium Level 3.8 mmol/L Chloride Level 102.0 mmol/L Carbon Dioxide Level 26.8 mmol/L Anion Gap 12.0 Blood Urea Nitrogen 12 mg/dL Creatinine 0.65 mg/dL Estimated GFR () 141.3 BUN/Creatinine Ratio 18.0 Glucose Level 138 mg/dL Calcium Level 8.4 mg/dL Total Bilirubin 0.5 mg/dL Aspartate Amino Transf (AST/SGOT) 12 U/L Alanine Aminotransferase (ALT/SGPT) 13 U/L Alkaline Phosphatase 62 U/L Total Protein 5.9 g/dL Albumin 2.5 g/dL Globulin 3.4 Percent Immature Gran (Cell Imm) 0.50 % Scheduled Aspirin (Aspir 81), 81 MG PO DAILY24, (Reported) Cefuroxime Axetil (Ceftin), 500 MG PO BID, (Reported) Dextran 70/Hypromellose/Pf (Artificial Tears Drops), 1 EACH OP BID, (Reported) Furosemide (Lasix), 20 MG PO DAILY24, (Reported) Guaifenesin (Mucinex), 600 MG PO BID, (Reported) Levofloxacin (Levaquin), 500 MG PO DAILY Lisinopril (Lisinopril), 10 MG PO DAILY24, (Reported) Metformin Hcl (Metformin Hcl), 1,000 MG PO BID, (Reported) Potassium Chloride (Potassium Chloride), 10 MEQ PO DAILY24, (Reported) Saliva Substitution Combo No.9 (Biotene), 10 ML MM BID, (Reported) Tamsulosin Hcl (Flomax), 0.4 MG PO DAILY24, (Reported) Scheduled PRN Mag Hydrox/Aluminum Hyd/Simeth (Maalox Advanced Suspension), 10 ML PO Q4 PRN for INDIGESTION, (Reported) Sepsis Evaluation @ Discharge Course Blood Pressure Systolic: 138 Blood Pressure Diastolic: 88 Blood Pressure Mean: 105 Notes see dictated report Plan Discharge Date: Aug 25, 2017 Dicharge DX: 1. Pneumonia, 2. CVA with residual left side weakness, 3. DM type 2 Discharge Disposition: Stable Plan Medication per discharge list PT/OT at SNF ADA diet Follow up with PCP 1-2 weeks Oxygen protocol Use incentive spirometer q2 hours while awake Discharge plans discussed with patient, he is his own decision maker and does understand and concur with plans Time spent 40 minutes Problem Qualifiers (1) Pneumonia: Laterality: bilateral Lung location: lower lobe of lung (2) DM type 2 (diabetes mellitus, type 2): Diabetes mellitus complication status: with circulatory complication Diabetes mellitus complication detail: with other circulatory complications SILVESTRE WANG MD Aug 25, 2017 10:07
[2017-08-25] MEDS: FLOMAX PO SCH (10:18)
[2017-08-25] MEDS: ASPIRIN EC PO SCH (10:18)
[2017-08-25] MEDS: GLUCOPHAGE PO SCH (10:18)
[2017-08-25] MEDS: LEVAQUIN PO SCH (10:18)
[2017-08-25] MEDS: MUCINEX PO SCH (10:19)
[2017-08-25] MEDS: ZESTRIL PO SCH (10:19)
[2017-08-25] MEDS: KLOR-CON 10 PO SCH (10:19)
[2017-08-25] MEDS: LASIX PO SCH (10:19)
== END 2017-08-25 11:00 | disposition home or self-care (01) | DRG 193 ==
LOC: MS 21:08
PROVIDERS: ADMIT Pediatrics; ATTEND Internal Medicine
DX: J18.1 Lobar pneumonia, unspecified organism (principal); J96.21 Acute and chronic respiratory failure with hypoxia; I69.354 Hemiplegia and hemiparesis following cerebral infarction affecting left non-dominant side; D63.8 Anemia in other chronic diseases classified elsewhere; E11.9 Type 2 diabetes mellitus without complications; I10 Essential (primary) hypertension; Z79.82 Long term (current) use of aspirin; Z87.891 Personal history of nicotine dependence; Z88.0 Allergy status to penicillin; Z88.8 Allergy status to other drugs, medicaments and biological substances; Z90.49 Acquired absence of other specified parts of digestive tract; Z79.84 Long term (current) use of oral hypoglycemic drugs; Z79.899 Other long term (current) drug therapy
CPT/HCPCS: 36415; 70146; 80048; 80053; 80202; 81002; 82948; 83880; 85025; 85651; 86140; 87070; 87205; 93005; 93307; 94640; 97161; 97166; J1650; J1956; J3480; J3490; J7040; J7050; J7060; J7620; 97116-GP; G8978-CI; G8978-CJ; G8979-CI; G8980-CI; G8987; G8988; J2185; J3370